=== PATIENT | male | born 1980 | race American Indian/Alaskan Native ===

== ENCOUNTER 2022-02-10 15:04 | Observation (INO) | payer SELFPAY ==
[2022-02-10 16:11] VITALS: BMI 20.2
[2022-02-10] MEDS ORDERED: Dextrose 5% in Water 1,000 ML IV PRN (16:39)
[2022-02-10] MEDS ORDERED: Ondansetron ODT 4 MG TAB PO PRN (16:39)
[2022-02-10] MEDS ORDERED: HumaLOG 300 UNITS/3 ML VIAL SC PRN ×2 (16:39)
[2022-02-10] MEDS ORDERED: Dextrose 50% Abboject 50 ML SYRINGE SLOW IVP PRN (16:39)
[2022-02-10] MEDS ORDERED: Lorazepam 2 MG/ML VIAL IM PRN (16:47)
[2022-02-10] MEDS ORDERED: Electrolyte Replacement Protocol 1 EACH FS SCH (17:00)
[2022-02-10] MEDS: Sodium Chloride 0.9% 1,000 ML IV SCH ×2 (17:35→21:57)
[2022-02-10] MEDS: Thiamine HCl 200 MG/2 ML VIAL SLOW IVP SCH (17:36)
[2022-02-10 17:53] LABS: Magnesium 1.7 mg/dL (1.6-2.6); Phosphorus 2.7 mg/dL (2.3-4.7)
[2022-02-10 18:12] LABS: Syphilis Antibody Nonreactive (Nonreactive); Syphilis Antibody Index 0.05 S/CO (<1.00 Non-Reactive)
[2022-02-10] MEDS ORDERED: Magnesium 2 GM/50 ML(in water) 2 GM in Premix Bag 1 BAG IVPB SCH (18:45)
[2022-02-10] MEDS: levETIRAcetam 500 MG TAB PO SCH (21:58)
[2022-02-10] MEDS: Lorazepam 1 MG TAB PO PRN (22:05)
[2022-02-10 22:31] LABS: Hemoglobin A1c 5.7 % (4.0-6.0)
[2022-02-11] MEDS: Sodium Chloride 0.9% 1,000 ML IV SCH ×5 (00:29→22:45)
[2022-02-11 01:23] LABS: Amphetamine Not Detected (NotDetected); Barbiturates Screen Not Detected (NotDetected); Benzodiazepine Screen Not Detected (NotDetected); Cocaine Metabolite Screen Not Detected (NotDetected); Methadone Not Detected (NotDetected); Methamphetamine Not Detected (NotDetected); Opiate Screen Not Detected (NotDetected); Oxycodone Screen Not Detected (NotDetected); Phencyclidine (PCP) Not Detected (NotDetected); THC/Cannabinoid Screen Detected (NotDetected); Tricyclic Screen Not Detected (NotDetected)
[2022-02-11 04:23] LABS: #Eosinphils 0.1 10x3/uL (0.0-0.5); #Monocytes 0.5 10x3/uL (0.0-1.1); #Neutrophils 2.1 10x3/uL (1.5-8.4); %Basophils 0.5 % (0.0-2.0); %Eosinophils 1.4 % (0.0-6.0); %Lymphocytes 29.3 % (18.0-47.0); %Monocytes 12.2 % (0.0-10.0); %Neutrophils 56.3 % (40.0-75.0); Hemoglobin 12.2 g/dL (13.5-17.5); Mean Corpuscular HGB CONC 32.3 g/dL (32.0-36.0); Mean Corpuscular Hemoglobin 25.1 pg (27.0-33.0); Mean Corpuscular Volume 77.8 fl (81.2-95.1); Mean Platelet Volume 9.7 fl (7.4-10.4); RBC Distribution Width 22.1 % (11.5-14.5); Red Blood Cell (RBC) Count 4.86 10x6/uL (4.32-5.72); White Blood Cell (WBC) Count 3.7 10x3/uL (3.5-10.5)
[2022-02-11 04:24] LABS: Platelet Count 123 10x3/uL (150-450)
[2022-02-11 04:56] LABS: Lactic Acid 0.7 mmol/L (0.5-2.2)
[2022-02-11 05:07] LABS: ALT (SGPT) 22 U/L (8-55); AST (SGOT) 41 U/L (5-34); Albumin 3.7 g/dL (3.5-5.0); Alkaline Phosphatase 90 U/L (40-110); Anion Gap 13 mmol/L (10-20); BUN (Urea Nitrogen) Less than 4 mg/dL (8.9-20.6); Bilirubin, Total 2.3 mg/dL (0.2-1.2); Calc. Creatinine Clearance 146 mL/min (70-130); Calcium 8.2 mg/dL (7.8-10.44); Carbon Dioxide 25 mmol/L (22-29); Chloride 104 mmol/L (98-107); Globulin 2.7 g/dL (2.4-3.5); Glucose 94 mg/dL (70-105); Potassium 3.4 mmol/L (3.5-5.1); Protein, Total 6.4 g/dL (6.0-8.3); Sodium 139 mmol/L (136-145)
[2022-02-11 05:09] LABS: Anisocytosis SLIGHT = 6-15 cells (100X) (0-5/hpf); Platelet Morphology Comment Appears Decreased
[2022-02-11] MEDS ORDERED: Potassium Chloride 20 MEQ TAB PO SCH (06:00)
[2022-02-11] MEDS ORDERED: Magnesium 2 GM/50 ML(in water) 2 GM in Premix Bag 1 BAG IVPB SCH (06:00)
[2022-02-11] MEDS: Lorazepam 1 MG TAB PO PRN ×4 (06:05→22:07)
[2022-02-11] MEDS: Folic Acid 1 MG TAB PO SCH (08:39)
[2022-02-11] MEDS: levETIRAcetam 500 MG TAB PO SCH ×2 (08:39→20:39)
[2022-02-11] MEDS: Multivit, Therapeutic 1 TAB PO SCH (08:40)
[2022-02-11] MEDS ORDERED: Octreotide Acetate 1,250 MCG in Sodium Chloride 0.9% 250 ML 250 ML IVPB SCH ×2 (10:15→23:34)
[2022-02-11 10:47] LABS: Hemoglobin 13.2 g/dL (13.5-17.5)
[2022-02-11] MEDS: Thiamine HCl 200 MG/2 ML VIAL SLOW IVP SCH (18:06)
[2022-02-11 23:05] LABS: ALT (SGPT) 25 U/L (8-55); AST (SGOT) 44 U/L (5-34); Albumin 4.1 g/dL (3.5-5.0); Alkaline Phosphatase 96 U/L (40-110); Anion Gap 12 mmol/L (10-20); BUN (Urea Nitrogen) Less than 4 mg/dL (8.9-20.6); Bilirubin, Total 1.9 mg/dL (0.2-1.2); Calc. Creatinine Clearance 134 mL/min (70-130); Carbon Dioxide 25 mmol/L (22-29); Chloride 104 mmol/L (98-107); Globulin 3.1 g/dL (2.4-3.5); Glucose 117 mg/dL (70-105); Potassium 4.1 mmol/L (3.5-5.1); Protein, Total 7.2 g/dL (6.0-8.3); Sodium 137 mmol/L (136-145)
[2022-02-12] MEDS: Sodium Chloride 0.9% 1,000 ML IV SCH ×3 (00:46→10:02)
[2022-02-12] MEDS: Folic Acid 1 MG TAB PO SCH (08:50)
[2022-02-12] MEDS: levETIRAcetam 500 MG TAB PO SCH (08:50)
[2022-02-12] MEDS: Multivit, Therapeutic 1 TAB PO SCH (08:50)
[2022-02-12] MEDS: Lorazepam 1 MG TAB PO PRN (08:51)
[2022-02-12 11:32] VITALS: TEMP 98.3
[2022-02-12 12:43] VITALS: BP 125/68
[2022-02-12] MEDS ORDERED: Lorazepam 1 MG TAB PO PRN (16:47)
[2022-02-12] MEDS ORDERED: Lorazepam 0.5 MG TAB PO SCH (17:00)
[2022-02-13] MEDS ORDERED: Lorazepam 0.5 MG TAB PO PRN (16:47)
[2022-02-13] MEDS ORDERED: Thiamine 100 MG TAB PO SCH (17:00)
== END 2022-02-12 12:26 | disposition home or self-care (01) ==
LOC: CSHTELE 15:04
PROVIDERS: ADMIT Internal Medicine; ATTEND Internal Medicine
DX: F10.239 Alcohol dependence with withdrawal, unspecified (principal); K70.30 Alcoholic cirrhosis of liver without ascites; I85.10 Secondary esophageal varices without bleeding; Z79.899 Other long term (current) drug therapy; E11.9 Type 2 diabetes mellitus without complications; E87.2 Acidosis; Z91.14 Patient's other noncompliance with medication regimen; K80.20 Calculus of gallbladder without cholecystitis without obstruction; G40.909 Epilepsy, unspecified, not intractable, without status epilepticus
CPT/HCPCS: 36415; 36416; 76705; 80053; 80306; 80307; 82607; 82746; 83036; 83605; 83690; 83735; 84100; 84425; 85025; 86780; 93005; 93010; 96365; 96375; 96376; G0378; J1815; J2354; J3411; J3475; J7050